=== PATIENT | female | born 1985 | race Caucasian/White ===

== ENCOUNTER 2019-12-04 08:15 | Emergency (ER) | payer SELFPAY ==
[2019-12-04] MEDS ORDERED: AMOXicillin 250 MG CAP ONE (09:11)
== END 2019-12-04 09:40 | disposition short-term general hospital (02) ==
LOC: BURERS 08:15
DX: K04.7 Periapical abscess without sinus (principal); M79.604 Pain in right leg; F31.9 Bipolar disorder, unspecified; F17.210 Nicotine dependence, cigarettes, uncomplicated
CPT/HCPCS: 99284